=== PATIENT | male | born 1950 | race Hispanic/Latino ===

== ENCOUNTER 2020-10-18 13:35 | Emergency (ER) | payer MEDICARE ==
[~2020-10-18] VITALS: Ht 152.4 cm; Wt 113.4 kg
[~2020-10-18 13:35] MED LIST: AEC81 PO; CANA300T PO; CLOP75TA32 PO; CYAN-52 PO; DILT360C16 PO; DOCU100C33 PO; DUTA.5 PO; ESOM40CA PO; FENO145T26 PO; FERS325 PO; GLIP5TAB11 PO; LINA5TAB PO; METF-446 PO; MONT10TA32 PO; RAMI5CAP66 PO; ROSU20TA23 PO
[2020-10-18 13:37] VITALS: BP 114/51
[2020-10-18 13:39] VITALS: BP 114/51
[2020-10-18] MEDS ORDERED: FUROSEMIDE 40MG VIAL IV SCH (14:00)
[2020-10-18] MEDS ORDERED: ALBUTEROL INHALER 90MCG/INH IH PRN (14:00)
[2020-10-18 14:40] LABS: BASOPHILS % (AUTO) 0.5 % (0.0-5.0); EOSINOPHILS % (AUTO) 1.5 % (0.0-8.0); HEMATOCRIT 36.9 % (42-54); LYMPHOCYTES % (AUTO) 19.2 % (21.0-51.0); MEAN CORPUSCULAR HEMOGLOBIN 30.9 pg (27.0-33.0); MEAN CORPUSCULAR HGB CONC 32.8 g/dL (32.0-36.0); MEAN CORPUSCULAR VOLUME 94.4 fL (79-99); MONOCYTES % (AUTO) 9.3 % (3.0-13.0); NEUTROPHILS % (AUTO) 69.2 % (40.0-77.0); PLATELET COUNT (AUTO) 219 K/uL (130-400); RED BLOOD CELL COUNT(AUTO) 3.91 MIL/uL (4.50-6.20); RED CELL DISTRIBUTION WIDTH 15.5 % (11.0-15.5); WHITE BLOOD COUNT (AUTO) 6.1 K/uL (4.8-10.8)
[2020-10-18 14:51] LABS: CREATININE 1.5 mg/dL (0.5-1.5); POTASSIUM 4.2 mmol/L (3.5-5.1)
[2020-10-18 14:55] LABS: ALBUMIN 3.2 g/dL (3.5-5.0); BILIRUBIN,TOTAL 0.3 mg/dL (0.2-1.0); CRP QUANTITATIVE 5.5 mg/L (0.00-9.0); TOTAL PROTEIN, SERUM 6.6 g/dL (6.0-8.3)
[2020-10-18 15:02] LABS: B-TYPE NATRIURETIC PEPTIDE 83 pg/mL (0-100)
[2020-10-18] MEDS ORDERED: LEVO500T89 PO (15:22)
[2020-10-18] MEDS ORDERED: AZIT500T PO (15:22)
[2020-10-18] MEDS ORDERED: FLUT1DIS IH (15:23)
[2020-10-18] MEDS ORDERED: ALBUHFA IH (15:23)
[2020-10-18] MEDS ORDERED: AZITHROMYCIN 250 MG TABLET PO ONE (15:30)
[2020-10-18] MEDS ORDERED: CEFTRIAXONE 1G VIAL IVP ONE (15:30)
== END 2020-10-18 23:54 | disposition home or self-care (01) ==
LOC: EDH 13:35
DX: J18.9 Pneumonia, unspecified organism (principal); J45.909 Unspecified asthma, uncomplicated; Z20.822 Contact with and (suspected) exposure to COVID-19; E11.9 Type 2 diabetes mellitus without complications; I10 Essential (primary) hypertension; I25.10 Atherosclerotic heart disease of native coronary artery without angina pectoris; I48.91 Unspecified atrial fibrillation; Z79.51 Long term (current) use of inhaled steroids; Z79.82 Long term (current) use of aspirin; Z79.84 Long term (current) use of oral hypoglycemic drugs; Z79.899 Other long term (current) drug therapy
CPT/HCPCS: 36415; 71045; 80053; 83605; 83880; 84484; 85025; 86140; 87635; 87804 ×2; 93005 ×2; 96374; 99285; C9803; J0696; J1940